=== PATIENT | male | born 1950 | race Caucasian/White ===

== ENCOUNTER 2019-05-19 05:40 | Observation (INO) | payer MEDICARE, OTHER ==
--- NOTE | 2019-05-13 13:51 | NUR ---
PATIENT AND HERE TODAY FOR PREADMISSION APPOINTMENT. PATIENT IS SCHEDULED TO HAVE A LEFT TOTAL HIP ARTHROPLASTY ON 05/19/19. HIS SIENNA WILL BE HERE TO TRANSFER HIM HOME WHEN HE IS DISCHARGED. HE HAS HAD A HIP AND KNEE REPLACEMENT IN THE PAST IT IS RECALLED BY THE PATIENT. THEY HAVE 2 STEPS INTO THE HOME AND NO STEPS INSIDE THE HOME THAT HE WILL HAVE TO NAVIGATE. THERE IS A WALK IN SHOWER WITH BUILT IN SHOWER BENCH. THEY ALSO HAVE A SHOWER CHAIR AND BARS IN THE BATHROOM. HE HAS A FRONT WHEELED WALKER THAT HE WILL BRING ON DAY OF SURGERY. THEY LIVE IN THE [place] AREA AND WOULD LIKE PHYSICAL THERAPY SET UP AT [facility] AFTER SURGERY. THEY ARE HEADING OVER TO ATTEND A PREOPERATIVE VISIT WITH PHYSICAL THERAPY WHEN THEY ARE DONE WITH THIS VISIT. THIS INFORMATION WILL BE SENT TO DR ZALDIVAR OFFICE AND CASE MANAGEMENT FOR FURTHER FOLLOW UP.
[~2019-05-19] VITALS: Ht 182.9 cm; Wt 96.2 kg
[~2019-05-19 05:40] MED LIST: ALEVE220 MG PO; ASPIR-LOW81 MG PO; FISH OIL 1,0001 EAC3 PO; LISINOPRIL-HCT1 EAC2 PO; MULTIVITAMINS1 EAC8 PO; NORVASC5 MG PO; OMEPRAZOLE20 MG PO; SILDENAFIL20 MG PO
--- NOTE | 2019-05-19 08:41 | NUR ---
PATIENT ARRIVED TO FLOOR AT 0820 WITH RONAK RN. AT BEDSIDE. PATIENT LYING AT 15 DEGREE HOB ON ADMISSION D/T LOW BP. EAR PROBE USED FOR HR AND O2 SATS. PATIENT HAS HX OF REYNAUDS SO FINGERS NOT READING WELL WITH PULSE OXIMETRY. VSS. SCDs AND TEDS ON BILAT LEGS. HR DISTANT AND DIFFICULT TO AUSCULTATE. HEART MONITOR IN PLACE. AWAITING ORDERS FROM DR PAGAN.
--- NOTE | 2019-05-19 08:54 | NUR ---
05/19/19 0854 Sarah Godoy 0741- PT ARRIVES TO PACU ALERT AND ORIENTED. PT IS CLAMMY AND REPORTS BEING "OUT OF IT". PT DENIES ANY CHEST PAIN, SOB, NAUSEA, OR OTHER SYMPTOMS. RESP EVEN AND UNLABORED. OXYGEN SAT HIGH 90'S TO 100% ON 8L VIA MASK. DR. ZALDIVAR AT THE BEDSIDE AND ORDERING LABS TO BE COMPLETED. PT PLACED ON THE 5- LEAD UPON ARRIVAL. EKG COMPLETED IN THE OR.
--- NOTE | 2019-05-19 12:03 | NUR ---
bladder scanned for 511ml. no urge to void. patient is able to move toes and has sensation in lower extremities. MD notified. order to straight cath.
--- NOTE | 2019-05-19 13:06 | NUR ---
STRAIGHT CATHETER ORDERED. PT UPDATED ON PLAN OF CARE AND REASON FOR STRIGHT CATHETER PLACEMENT. PT VERBALIEZES UNDERSTANDING AND AGREES TO PROCEEDURE. STRAIGHT CATHETER PLACED PER PROTOCOL BY DOUGIE, STUDENT RN WITH ASSITANCE FROM THIS RN. 725 ML RETRIEVED FROM BLADDER. CATHETER REMOVED. PT TOLERATED PROCEEDURE WELL. KENDELL CARE DONE. LAB ARRIVED FOR LAB DRAW. NO ADDITIONAL REQUESTS OR COMPLAINTS. AT BEDSIDE. CALL LIGHT WITHIN REACH. BED RAILS UP.
--- NOTE | 2019-05-19 13:17 | NUR ---
PTS REPORTS PTS TOXICOLOGIST IS DR YINA ANDERSON IN [facility], PHONE NUMBER [phone]. PT AND REQUEST HE BE CALLED AND UPDATED ON PT SITUATION. MD MACIAS.
--- NOTE | 2019-05-19 14:28 | NUR ---
PT ALERT, ORIENTED AND SUPPORTED BY HIS . ADVERTISING ASSOCIATE WAITING OUTSIDE RM. GAVE QUICK WELCOME, PT FROM [facility]-TRAVELLED HERE SUNDAY. GAVE BLESSING, AND WILL CHECK ON PT AGAIN IN M/S
--- NOTE | 2019-05-19 14:46 | NUR ---
PT IS IN CCU,DID NOT HAVE SURGERY. HEAR WENT INTO [facility], DR CANCELLED SURGERY AND ADMITTED PT. BOTH PT AND SIENNA VERY THANKFUL FOR CARE AND WISDOM SHONE BY DR ZALDIVAR AND STAFF. PT WOULD NOT ADMIT, BUT SOME ANXIETY PRESENT. HE REQUESTED PRAYER, TEARS BEGAN TO FLOW. HAD DISCUSSION AB0UT DRS' DECISION, AGAIN EXPRESSED AGREEMENT WITH DECISION. BOTH THANKED ME FOR COMING BY, LEFT G.POST IN .
--- NOTE | 2019-05-19 15:05 | EKG ---
[facility] [address] [place] [address] Signed Unusual P axis, possible ectopic atrial tachycardia Left axis deviation Left bundle branch block Abnormal ECG No previous ECGs available Confirmed by NAV PAGAN MD ([id number]) on 05/19/2019 3:05:02 PM Electronically Signed By: NAV PAGAN MD 05/19/19 1505 PATIENT NAME: LACIE KHAN [place] Electrocardiogram DATE OF : 52 PHYSICIAN: NAV PAGAN MD REPORT #: [id number] REPORT IS CONFIDENTIAL AND NOT TO BE RELEASED WITHOUT AUTHORIZATION
--- NOTE | 2019-05-19 17:07 | NUR ---
AMBULATED TO BATHROOM. SBA. URINATED 1275ML ORANGE URINE INTO URINAL. VSS.
--- NOTE | 2019-05-19 21:00 | NUR ---
PT AMBULATED TO BATHROOM HEART RATE INCREASED TO 122 AT THE MAX THEN WHEN BACK IN BED BACK TO THE 60'S. SCD'S INPLACE AT THIS TIME, CALL LIGHT WITHIN REACH.
--- NOTE | 2019-05-19 22:38 | NUR ---
PT HAS HAD ADRIÁN SPO2 DESAT'S INTO THE 80'S, THEREFORE MOVED SPO2 MONITOR TO THE PINKEY FINGER TO SEE IF THAT WOULD HELP. PT DOES HAVE COOL HANDS AND FINGERS. HE ALSO WAS IN THE PROCESS OF TURNING TO HIS SIDE. WITH THE CHANGE OF SPO2 MONITOR READINGS HAVE INPROVED. WITH PT ON HIS SIDE HIS HEART RATE INCREASED TO THE 110 AND IS PACED.
--- NOTE | 2019-05-20 00:55 | NUR ---
PT UP TO THE BATHROOM VOIDED AND THEN BACK TO BED. HEART RATE INCREASES TO THE 122 WITH AMBULATION
--- NOTE | 2019-05-20 04:31 | NUR ---
PT APPEARS TO BE SLEEPING AT THIS TIME. SPO2 100% ON ROOM AIR.
--- NOTE | 2019-05-20 05:44 | NUR ---
PT CONTIOUES TO SLEEP WILL COMPLETE ASSEMENT WHEN HE AWAKENS.
--- NOTE | 2019-05-20 05:52 | NUR ---
NO AM LABS, PT ASLEEP.
--- NOTE | 2019-05-20 07:30 | NUR ---
REPORT RECIEVED. PATIENT IS TALKATIVE AND IS GOOD SPIRTIS.
--- NOTE | 2019-05-20 08:00 | NUR ---
ASSESSMENT DONE. DENIES PAIN. TALKED WITH PATIENT ABOUT POC FOR DAY, PATIENT IS UNDERSTANDING.
--- NOTE | 2019-05-20 09:16 | NUR ---
TOOK BREAKFAST WELL. IS W/O C/O. IS AT BEDSIDE.
--- NOTE | 2019-05-20 09:30 | NUR ---
DR. PAGAN HERE TO SEE PATIENT. DISCHARGE ORDERS RECIEVED.
--- NOTE | 2019-05-20 09:40 | NUR ---
PT IS SOMEWHAT UPSET ABOUT DISCHARGE FEELS HE DOESN'T KNOW WHAT IT GOING ON WITH HIS PACEMAKER. REASSURED PATIENT I WOULD TALK TO DR. PAGAN AND PT HYDRAULIC CONTROLS TECHNICIAN.
--- NOTE | 2019-05-20 10:01 | NUR ---
MED REC COMPLETE
[2019-05-20] MEDS ORDERED: IRON325 M1 PO (10:02)
--- NOTE | 2019-05-20 11:00 | NUR ---
AMBULATED IN ALBRECHT, TOLERATED WELL. HR 62-126.
--- NOTE | 2019-05-20 11:40 | NUR ---
TALKED TO VIA PHONE, WILL FAX STRIPS TO PATIENT.
--- NOTE | 2019-05-20 12:00 | NUR ---
EKG AND STRIPS FAXED TO DR. ANDERSON OFFICE FOR REVIEW. PATIENT IS SITTING UP IN CHAIR READY TO EAT.
--- NOTE | 2019-05-20 13:25 | NUR ---
discharge instructions given with patient understanding, patient then discharged via w/c.
--- NOTE | 2019-05-20 13:52 | NUR ---
PT AND JUST GETTING READY TO EAT LUNCH. PT SAID HE IS TO BE DC'D LATER TODAY. FEELS CONFIDENT THAT THIS WAS THE RIGHT DECISION AND SAID HE FEELS EVERYONE LEARNED SOMETHING AND THAT SEEMED TO PLEASE HIM. PT REQUESTED PRAYER AND INCLUDED THANKS FOR DR MAGAÑA, HELP GETTING ANOTHER SURGERY DATE AND FOR SAFE TRAVEL HOME. EXTENDED A BLESSING,
== END 2019-05-20 13:25 | disposition home or self-care (01) ==
LOC: DS 05:40 → OPS 08:00 → EDSTATUS 08:00 → DS 08:00 → CCU 08:16
PROVIDERS: ADMIT Internal Medicine
PROC: 0SRB0JZ Replacement of Left Hip Joint with Synthetic Substitute, Open Approach (ICD-10-PCS; principal; 2019-05-19)
DX: M16.12 Unilateral primary osteoarthritis, left hip (principal); I95.9 Hypotension, unspecified; E78.00 Pure hypercholesterolemia, unspecified; I10 Essential (primary) hypertension; Z88.0 Allergy status to penicillin; Z88.8 Allergy status to other drugs, medicaments and biological substances; Z79.899 Other long term (current) drug therapy; Z79.82 Long term (current) use of aspirin; Z53.09 Procedure and treatment not carried out because of other contraindication
CPT/HCPCS: 01230; 36415; 51701; 51798; 80053; 82550; 82553; 83735; 83874; 84484; 85025; 93005; 93010; G0378; J0690; J1100; J2250; J2704; J2795; J3010; J7121

== ENCOUNTER 2019-08-11 09:50 | Day surgery (SDC) | payer MEDICARE, OTHER ==
--- NOTE | 2019-08-05 17:02 | NUR ---
PATIENT HERE FOR PREADMISSION APPOINTMENT. HE IS SCHEDULED TO HAVE A LEFT TOTAL HIP ARTHROPLASTY ON 08/11/2019. IT IS RECALLED HE WAS HERE IN MAY AND DID NOT HAVE SURGERY DUE TO A HEART ISSUE. HE STATES HE HAS BEEN TO THE REPORT MANAGER AND IS DOING VERY WELL. HIS WILL BE HERE TO TRANSPORT HIM HOME AND TO APPOINTMENTS NEEDED. THEY HAVE 1 OR 2 STEPS INTO THE HOME AND NO STEPS ON THE MAIN LEVEL THAT HE WILL BE USING. THERE IS A WALK IN SHOWER AND HE HAS A SHOWER BENCH. HE WILL BRING HIS WALKER WITH HIM AND WOULD LIKE PHYSICAL THERAPY SET UP WITH [facility] SINCE THEY LIVE IN THE [place] AREA. THIS INFORMATION WILL BE SENT TO DR ZALDIVAR OFFICE AND CASE MANAGEMENT FOR FURTHER FOLLOW UP.
[~2019-08-11] VITALS: Ht 182.9 cm; Wt 98.4 kg
--- NOTE | ~2019-08-11 | EKG ---
[facility] [address] [place], [place] [address] Draft EK completed, results pending confirmation PATIENT NAME: CHANAALISHALACIE Electrocardiogram DATE OF : 52 PHYSICIAN: PRELIMINARY REPORT #: [id number] REPORT IS CONFIDENTIAL AND NOT TO BE RELEASED WITHOUT AUTHORIZATION
[~2019-08-11 09:50] MED LIST changes: +IRON325 M1 PO
--- NOTE | 2019-08-11 11:30 | NUR ---
PATIENT RESTING BACK WATCHING TELEVISION. UPDATED ON WAIT TIME. NO OTHER NEEDS AT THIS TIME.
--- NOTE | 2019-08-11 12:30 | NUR ---
PATIENT BLOCK DONE BY MARCY BAPTISTE. TOLERATED WELL. RAILS UP, CALL LIGHT WITHIN REACH. VSS. NO OTHER NEEDS AT THIS TIME. PATIENT AWARE OF WAIT TIME.
--- NOTE | 2019-08-11 13:50 | NUR ---
TXA STARTED DRIPPING SLOWLY. PATIENT AWAKE AND CONVERSING. NO OTHER NEEDS AT THIS TIME.
--- NOTE | 2019-08-11 14:02 | NUR ---
PATIENT LEFT TO OR. NEW BAG OF LR HANGING PER CLAUDIA GRAIN SCOOPER REQUEST. PATIENT APPEARS CALM. VSS.
--- NOTE | 2019-08-11 16:39 | NUR ---
Received referral for placement. Attempted to call , but no answer. Will call tomorrow or speak with patient and check if they are seeking placement in [place] or [place].
--- NOTE | 2019-08-11 17:50 | NUR ---
PT ARRIVED TO FLOOR VIA STRETCHER. FOOT PUMPS. TEDHOSE, CRYOCUFF IN PLACE. PT IS ALERT AND ORIENTED. PICCO DRESSING BLINKING GREEN. WATER AND CRACKERS GIVEN. DINNER ORDERED. CALL LIGHT IN REACH./
--- NOTE | 2019-08-11 17:57 | EKG ---
[facility] [address] [place] [address] Signed Atrial-sensed ventricular-paced rhythm Abnormal ECG When compared with ECG of 11-AUG-2019 17:26, (Unconfirmed) Vent. rate has decreased BY 11 BPM Confirmed by ABDI MCKEON DO ([id number]) on 08/11/2019 5:57:13 PM Electronically Signed By: ABDI MCKEON DO 08/11/19 1757 PATIENT NAME: BILLLACIE Electrocardiogram DATE OF : 52 PHYSICIAN: ABDI MCKEON DO REPORT #: [id number] REPORT IS CONFIDENTIAL AND NOT TO BE RELEASED WITHOUT AUTHORIZATION
--- NOTE | 2019-08-11 18:03 | NUR ---
08/11/19 1803 Miladys Albrecht 1711 PT ARRIVED IN PACU AWAKE WITH NO C/O'S. 1715 ANESTHESIA REQUESTING EKG FOR HEART RATE CHANGES IN OR. 1720 RT AT BEDSIDE. EKG DONE. 1730 CRYO CUFF PLACED ON L HIP. ANESTHESIA REVIEWED EKG WITH NO NEW ORDERS. PT WITH NO C/O'S. 1750 TO MED SURG. REPORT GIVEN TO RN.
--- NOTE | 2019-08-11 18:50 | NUR ---
VITALS TAKEN AND STABLE. FOCUS ASSESSMENT COMPLETED. NO CHANGES.
--- NOTE | 2019-08-11 19:30 | NUR ---
REPORT RECEIVED FROM DAY SHIFT RN. PT LYING IN BED, ALERT AND ORIENTED. LEFT HIP DRESSING CDI. CLAUDIA INTACT, LIGHT FLASHING GREEN. SCD'S/TEDS/HP/CRYO IN PLACE. PT DENIES PAIN OR NAUSEA. FRESH WATER GIVEN. POST-OP VS COMPLETE. NO FURTHER NEEDS AT THIS TIME. WHITE BOARD UPDATED. CALL LIGTH IN REACH.
--- NOTE | 2019-08-11 20:15 | NUR ---
SPOKE WITH PT REGARDING PLACEMENT. HE STATES THAT HE DOES NOT WANT THAT AND JUST WANTS TO DO OUTPT PHYSICAL THERAPY IN [place]. STATES THAT HIS HOUSE IS HANDICAPP ACCESSIBLE AND HAS A AT HOME TO HELP.
--- NOTE | 2019-08-11 22:30 | NUR ---
EVENING ASSESSMENT COMPLETE. SCHEDULED MEDS ADMINISTERED PER EMAR. PT DENIES PAIN OR NAUSEA. CLAUDIA DRESSING ON LEFT HIP CDI, LIGHT FLASHING GREEN. SCD'S/JUSTICE'S/HP IN PLACE. FRESH ICE TO CRYO. CMS INTACT. PT DUE TO VOID. DENIES PAIN OR NAUSEA. FRESH WATER GIVEN. IV ABX INFUSING.
--- NOTE | 2019-08-11 23:00 | NUR ---
PT UP TO SIDE OF BED WITH 2PA TO ATTEMPT TO VOID. UNABLE TO VOID. BLADDER SCAN >900 ML. MARTE PLACED PER ORDER. PT NATALIA WELL. IMMEDIATE RETURN OF 1000 ML ORANGE TINGED URINE.
--- NOTE | 2019-08-11 23:33 | NUR ---
EVENING ASSESSMENT COMPLETE. SCHEDULED MEDS ADMINISTERED PER EMAR. PT DENIES PAIN OR NAUSEA. CLAUDIA DRESSING ON LEFT HIP INTACT, LIGHT FLASHING GREEN. SCD'S/JUSTICE'S/HP IN PLACE. FRESH ICE TO CRYO. CMS INTACT. PT DUE TO VOID. DENIES PAIN OR NAUSEA. FRESH WATER GIVEN. IV ABX INFUSING.
--- NOTE | 2019-08-12 01:30 | NUR ---
VS COMPLETE. SCHEDULED MEDS ADMINISTERED. PT DENIES PAIN. SCD'S/JUSTICE'S/HP/CRYO IN PLACE. CLAUDIA INTACT, LIGHT FLASHING GREEN. CPOX IN PLACE. HR 60. SPO2 96% ON RA.
--- NOTE | 2019-08-12 03:45 | NUR ---
PT AWAKE. CPOX ALARMING, HR 114 FOR A FEW SECONDS AND THEN RETURNS TO 60'S. PT ASYMPTOMATIC, DENIES CP OR SOB. SPO2 97% ON RA. PT REPORTS "A LITTLE" PAIN IN LEFT HIP INCISION. DENIES NAUSEA.
--- NOTE | 2019-08-12 05:07 | NUR ---
PT RESTING IN BED WITH EYES CLOSED, RR EVEN AND UNLABORED. HR 112. SPO2 92% ON RA.
--- NOTE | 2019-08-12 06:05 | NUR ---
S/P LTH. PT SLEPT ON AND OFF. ALERT AND ORIENTED, USES CALL LIGHT. NATALIA REG DIET. RA. MARTE PLACED LAST NOC FOR RETENTION. DC'D THIS AM. SBA WITH FWW. LEFT HIP CLAUDIA DRESSING INTACT WITH SCANT AMOUNT OF DRAINAGE, LIGHT FLASHING GREEN. SCD'S/JUSTICE'S/HP/CRYO. PT WITH PACEMAKER, HR BECAME IRREGULAR THIS SHIFT. PT ASYMPTOMATIC, NO CP OR SOB. PAIN CONTROLLED WITH SCHEDULED MEDS. NO NAUSEA.
--- NOTE | 2019-08-12 06:52 | NUR ---
PLACED CALL TO UPDATE DR. ZALDIVAR ON PT HR AND MARTE PLACEMENT.
--- NOTE | 2019-08-12 07:51 | NUR ---
REPORT RECIEVED. PT SITTING UP IN BED ALERT. CPOX IN PLACE. TEDHOSE, SCD'S CRYOCUFF IN PLACE. PICCO BLINKING GREEN. DENEIS PAIN AT THIS TIME. CALL LIGHT IN REACH.
--- NOTE | 2019-08-12 08:01 | OR ---
[facility] [address] [facility] [place], [place] [address] Signed DATE OF OPERATION: 08/11/2019 SURGEON: Lenard Ashford MD PREOPERATIVE DIAGNOSIS: Severe degenerative joint disease, left hip. POSTOPERATIVE DIAGNOSIS: Severe degenerative joint disease, left hip. PROCEDURE PERFORMED: Left total hip arthroplasty with Jarrett. CANDY FORMING MACHINE OPERATOR: Kirstie Mendez PA-C. ANESTHESIA: Spinal. BLOOD LOSS: 250 mL. IMPLANTS: Keanu PSL cup size 60, Accolade II stem, size 9 and a -2.5 ceramic head. BRIEF HISTORY: Keo is a 68-year-old gentleman with bilateral hip pain and undergone prior right total hip with good results. He wished to proceed with a left. Risks, benefits, and alternatives were discussed at length. He understood and wished to proceed. DESCRIPTION OF PROCEDURE: Once consent was obtained, he was taken to the operating room. After adequate anesthesia, he was placed on operating room table. The left hip was placed on a bump. Both legs were prepped and draped up to the ribcage. The computer ray was then placed on the right iliac crest, three fingerbreadths behind the ASIS. Separate stab incisions were made. All three pins were put in using the guide and the guide was tightened and the ray was placed such that was seen by the computer. Attention was then turned to the left side. The standard anterior approach was taken through a longitudinal incision about 9 cm long, this was eventually increased to 12 cm. This carried through skin and subcutaneous tissue. The fascia of the TFL was then identified and incised Electronically Signed By: LENARD ASHFORD MD 08/12/19 0801 PATIENT NAME: KEO KHAN OPERATIVE REPORT DATE OF : 52 REPORT #: [id number] PHYSICIAN: LENARD ASHFORD MD PCP: MARCY SANTOS MD REPORT IS CONFIDENTIAL AND NOT TO BE RELEASED WITHOUT AUTHORIZATION [facility] [address] [place], [place] [address] Signed longitudinally. The TFL was then taken off the underside of the fascia and mobilized laterally. The underlying rectus fascia was then identified. There were three vessels and this and those were cauterized using the Aquamantys and transected. The soft tissue on the anterior capsule was extremely adherent and quite thickened. This was elevated off to allow the retractors to be placed medially and laterally around the femoral neck. Once we had accomplished this, the trochanter was cleared of soft tissue anteriorly and checkpoint was placed there. The two checkpoints were then registered with the computer to establish the current leg length. The anterior capsulotomy was then performed and the acetabular rim was cleared of soft tissue. We then released the capsule inferior inferiorly down to the level of the lesser trochanter. This was palpable. External rotation allowed us to get around were needed to be. The superior capsule was then released up the inside of the greater trochanter trying to preserve the gluteus minimus. Once this was accomplished, the neck cut, which was aligned out on the computer was then selected and the neck cut was made with the sagittal saw and a napkin ring was made and the center portion was removed. The femoral head was then removed actually fairly easily. The periacetabular soft tissue was removed all the way around including the pulvinar. The acetabulum was then registered with the computer using multiple registration points. Once this was satisfactorily done, the Jarrett reamer was brought in and 44 degrees of abduction and 20 degrees of anteversion. The reaming was proceeded, first with a 55, followed by 60, followed by 62 to widen the starting point. The reamer was taken to the depth as indicated on the computer. The implant was then selected, placed on the impactors in the robot and was placed in the wound. The robot was then activated and the acetabulum was impacted until it was well-seated. The public health veterinarian was then removed. The acetabular cup was quite stable and the liner was then placed and impacted until it was well-seated. Attention was then turned to the proximal femur. The releases were performed in the superior and medial portions of the trochanter. We were able then to mobilize the femur by externally rotating, abducting and flexing the bed. We were then able to broach with care taken to lateralize the broaches up to a 9. The 9 was quite well fitting, was left in position. The high offset neck and -2.5 head were then placed and the hip was reduced. The leg lengths were found to be equal. We checked the checkpoints with the computer, there was 2 mm lengthening compared to the opposite side. Offset was the same. We elected to accept this. The hip was then dislocated. The trial was removed. The final stem was positioned and impacted to the same level as the broach. The final head was then impacted. The hip was reduced. Range of motion showed 120 degrees of flexion with 40 of internal and external rotation. Leg lengths were equal. The wound was copiously irrigated with normal saline, followed by iodine, followed by more normal saline. The fascia was then closed using #1 Stratafix, subcutaneous tissue with #1 Stratafix, and the skin with ZipLine. The wound was dressed with a CLAUDIA wound VAC dressing. He was awakened and taken to the recovery room in satisfactory condition. All sponge, needle, and instrument counts were correct. Electronically Signed By: LENARD ASHFORD MD 08/12/19 0801 PATIENT NAME: KEO KHAN OPERATIVE REPORT DATE OF : 52 REPORT #: [id number] PHYSICIAN: LENARD ASHFORD MD PCP: MARCY SANTOS MD REPORT IS CONFIDENTIAL AND NOT TO BE RELEASED WITHOUT AUTHORIZATION [address] [place], [place] [address] Signed Lenard Ashford MD BA/MODL /[id number] Copies: ~ Electronically Signed By: LENARD ASHFORD MD 08/12/19 0801 PATIENT NAME: KEO KHAN OPERATIVE REPORT DATE OF : 52 REPORT #: [id number] PHYSICIAN: LENARD ASHFORD MD PCP: MARCY SANTOS MD REPORT IS CONFIDENTIAL AND NOT TO BE RELEASED WITHOUT AUTHORIZATION
--- NOTE | 2019-08-12 08:07 | NUR ---
PATIENT RESTING IN BED. BEDBATH DONE. PATIENT USING AN CLEAN GOWN. SETS UP TABLE FOR BREAKFAST. CALL LIGHT WITHIN REACH. NO OTHER NEEDS AT THIS TIME
--- NOTE | 2019-08-12 09:30 | NUR ---
SBA WITH FWW TO BATHROOM FOR BM AND VOID. AMBULOATED WELL WITH NO ASSISTANCE AND NO PAIN. LUH NTO SIT IN CHAIR AFTER.
--- NOTE | 2019-08-12 09:38 | NUR ---
PHYSICAL THERAPY IN TO WORK WITH PT.
--- NOTE | 2019-08-12 09:59 | NUR ---
PATIENT RESTING IN BED. VITAL SIGNS AND I&O DONE. CALL LIGHT WITHIN REACH. NO OTHER NEEDS AT THIS TIME
--- NOTE | 2019-08-12 12:00 | NUR ---
Spoke with Adelfo. States he feels good and is doing well. He lives near [place] with his . Has a walker, cane, and wc from past fx leg. Does not use. Will use his walker as needed. He has been up and walking and walked up and downs with PT. States he was somewhat dizzy, but it was his first time out of bed. On tele. Denies needs to go home and plans on dc tomorrow, if Dr. Ashford agreeable.
--- NOTE | 2019-08-12 12:36 | NUR ---
PT ASSISTED TO BATHROOM. VOIDED 500ML. NO BM. BACK TO BED. CRYOCUFF, TEDHOSE, SCD'S IN PLACE. DENIES PAIN. CALL LIGHT IN REACH.
--- NOTE | 2019-08-12 13:20 | NUR ---
PATIENT SITTING UP IN BED. VITAL SIGNS AND I&O DONE. CALL LIGHT WITHIN REACH. NO OTHER NEEDS AT THIS TIME
--- NOTE | 2019-08-12 14:41 | NUR ---
PATIENT AMBULATING IN THE HALLWAY WITH PHYSICAL THERAPIST
--- NOTE | 2019-08-12 15:43 | NUR ---
PT WORKED WELL WITH PHYSICLA THERAPY. REPORTS 3/10 PAIN AFTER THERAPY. VOIDED 1000 ML. CRYOCUFF REFRESHED, TEDHOSE IN PLACE. BREAK FROM SCD'S. PT INSTRUCTIONED TO PUMP FEET. CRESSINGS WITH SMALL AMOUNT OF SHADOWING BUT WNL. CALL LIGHT IN REACH. DENIES NEEDS.
--- NOTE | 2019-08-12 17:14 | NUR ---
PATIENT RESTING IN BED. VITAL SIGNS AND I&O DONE. CALL LIGHT WITHIN REACH. ICE WATER GIVEN. NO OTHER NEEDS AT THIS TIME
--- NOTE | 2019-08-12 17:41 | EKG ---
[facility] [address] [facility] [place] [address] Signed AV dual-paced rhythm Abnormal ECG When compared with ECG of 11-AUG-2019 17:31, Vent. rate has decreased BY 11 BPM Confirmed by ABDI MCKEON DO ([id number]) on 08/12/2019 5:41:13 PM Electronically Signed By: ABDI MCKEON DO 08/12/19 1741 PATIENT NAME: CHANAALISHALACIE Electrocardiogram DATE OF : 52 PHYSICIAN: ABDI MCKEON DO REPORT #: [id number] REPORT IS CONFIDENTIAL AND NOT TO BE RELEASED WITHOUT AUTHORIZATION
--- NOTE | 2019-08-12 18:47 | NUR ---
PT ASSSITED TO BATHROOM. HAS URGE TO HAVE BM BUT IS UNABLE. INCREASED SENZ DOSE AND MYRALAX TO BID. PT VOIDED 750ML. STILL DENIES PAIN. AMBULATING WELL. BACK TO BED WITH EMILY LONG, SCD'S. PICCO BLINKING GREEN. DRESSINGS C/D/I.
--- NOTE | 2019-08-12 18:49 | NUR ---
PT HAD GOOD DAY. NO PAIN THIS SHIFT. VOIDING WELL, DUE FOR BOWEL MOVEMENT. INCREASED SENNO AND MYRALAX DOSES. TELE 4 IN [place] AND RHYTHM IS PACED BETWEEN 60-90. CRYOCUFF TO LEFT HIP. TEDOHOSE AND SCD'S IN PLACE WHILE IN BED. AMBUATING WELL AND WORKING WELL WITH PHYSICAL THERAPY. NO NEED FOR OXYCODONE.
--- NOTE | 2019-08-12 19:25 | NUR ---
IN ROOM FOR REPORT, PT IS AWAKE IN BED AND DENIES NEEDS AT THIS TIME. CALL LIGHT IS CLOSE.
--- NOTE | 2019-08-12 20:40 | NUR ---
IN ROOM TO ASSESS PT AND ADMINISTER MEDICATIONS. PAIN IS 3/10 AT THIS TIME AND TOLERABLE CRYO CUFF IN PLACE AND PT IS TAKING A BREAK FROM SCDS BUT AES ARE IN PLACE. PT PLANS ON WALKING TONIGHT. HE DENIES NEEDS AT THIS TIME. CALL LIGHT IS CLOSE.
--- NOTE | 2019-08-12 21:02 | NUR ---
ACCOMPANIED PATIENT WALKED AROUND NURSE STATION X1. PATIENT IS BACK IN BED. CALL LIGHT IN REACH.
--- NOTE | 2019-08-12 22:09 | NUR ---
IN ROOM TO ADMINISTER TYLENOL FOR 4/10 PAIN. PT DENIES FURTHER NEEDS, CALL LIGHT IS CLOSE.
--- NOTE | 2019-08-12 23:43 | NUR ---
PT IS RESTING WITH EYES CLOSED, RR IS EVEN AND NONLABORED. CALL LIGHT IS CLOSE.
--- NOTE | 2019-08-13 01:29 | NUR ---
PT IS RESTING WITH EYES CLOSED, RR IS EVEN AND NONLABORED. CALL LIGHT IS CLOSE.
--- NOTE | 2019-08-13 03:41 | NUR ---
PT IS RESTING WITH EYES CLOSED, RR IS EVEN AND NONLABORED. CALL LIGHT IS CLOSE.
--- NOTE | 2019-08-13 04:10 | NUR ---
PT WAS HELPED TO RESTROOM BY TRA WALTERS AND PT IS NOW BACK IN BED. HE REPORTS PAIN 2/10 AND DENIES NEED FOR MEDICATION. SEE ASSESSMENT FOR MORE DETAILS. PT DENIES FURTHER NEEDS AT THIS TIME. CALL LIGHT IS CLOSE.
--- NOTE | 2019-08-13 07:46 | NUR ---
REPORT RECEIVED FROM SELENA HAGEN. PT SITTING UP IN BED TALKING ON PHONE TO . DENIES CONCERNS ATT. CRYO IN PLACE. CALL ESTEE IN REACH.
[2019-08-13] MEDS ORDERED: ASPIRIN EC325 MG PO (08:52)
[2019-08-13] MEDS ORDERED: GABAPENTIN600 MG PO (08:53)
[2019-08-13] MEDS ORDERED: CELECOXIB200 MG PO (08:53)
[2019-08-13] MEDS ORDERED: OXYCODONE HCL5 MG PO (08:53)
[2019-08-13] MEDS ORDERED: DOK PLUS TABLE1 EACH PO (08:53)
--- NOTE | 2019-08-13 10:15 | NUR ---
IN TO INTEROGATE PTS PACEMAKER WITH [facility]. ON PHONE WITH TECH, SHE REPORTS THAT TRANSMISSION WAS RECIEVED.
--- NOTE | 2019-08-13 11:24 | NUR ---
SPOKE WITH PT REGARDING SHOWER AND GOT ALL SUPPLIES READY. STUDENT WILL STAY IN ROOM WITH PT WHILE HE SHOWERS IF HE NEEDS ANYTHING SHE CAN ALERT US. REMOVED IV WNL. REMOVED FROM TELE TEMPORARILY.
[2019-08-13] MEDS ORDERED: VITAMIN C1000 MG PO (12:44)
--- NOTE | 2019-08-13 13:15 | NUR ---
Spoke with Keo. He is dressed and waiting to go home. He plans on OP therapy with [facility]. H&P, progress notes, therapy notes, face sheet faxed to OP in [place]. Note sent as pt does not want to start therapy until middle of next week.
== END 2019-08-13 13:40 | disposition home or self-care (01) ==
LOC: DS 09:50 → MS 09:50 → DS 10:45 → MS 18:09 → DS 08-13 13:40
PROVIDERS: Specialist
PROC: 8E0YXBZ Computer Assisted Procedure of Lower Extremity (ICD-10-PCS; 2019-08-11)
PROC: 0SRB03Z Replacement of Left Hip Joint with Ceramic Synthetic Substitute, Open Approach (ICD-10-PCS; principal; 2019-08-11 12:15)
DX: M16.12 Unilateral primary osteoarthritis, left hip (principal); I10 Essential (primary) hypertension; K21.9 Gastro-esophageal reflux disease without esophagitis; Z79.899 Other long term (current) drug therapy; Z79.82 Long term (current) use of aspirin; Z88.0 Allergy status to penicillin; Z96.641 Presence of right artificial hip joint; Z96.651 Presence of right artificial knee joint; Z88.8 Allergy status to other drugs, medicaments and biological substances
CPT/HCPCS: 01214; 64447; 73501; 76942; 93005; 93010; 97110; 97116; 97161; C1776; J0690; J1100; J1885; J2001; J2250; J2370; J2405; J2704; J2795; J7121; J8540

== ENCOUNTER 2022-07-03 07:00 | Day surgery (SDC) | payer MEDICARE, OTHER ==
[~2022-07-03] VITALS: Ht 182.9 cm; Wt 98.6 kg
[~2022-07-03 07:00] MED LIST changes: +ASPIRIN EC325 MG PO; +CELECOXIB200 MG PO; +DOK PLUS TABLE1 EACH PO; +GABAPENTIN600 MG PO; +METOPROLOL TART75 MG PO; +OXYCODONE HCL5 MG PO; +TOPROL XL50 MG PO; +TYLENOL325 MG PO; +VITAMIN C1000 MG PO
[2022-07-03 07:19] VITALS: BP 152/89
--- NOTE | 2022-07-03 09:28 | NUR ---
ekg done shown to physician
[2022-07-03] MEDS ORDERED: GABAPENTIN300 MG PO (11:37)
[2022-07-03] MEDS ORDERED: DICLOFENAC SODI75 MG PO (11:37)
[2022-07-03] MEDS ORDERED: OXYCODONE HCL5 MG PO (11:37)
[2022-07-03] MEDS ORDERED: SENNA LAX8.6 MG PO (11:37)
[2022-07-03] MEDS ORDERED: XARELTO10 MG PO (11:37)
[2022-07-03 12:38] VITALS: BP 127/79
--- NOTE | 2022-07-03 12:39 | NUR ---
07/03/22 1239 Miladys Albrecht 1141 PT ARRIVED IN PACU NON RESPONSIVE TO NOXIOUS STIMULI WITH OPA IN PLACE. CHIN LIFT HELD BY RN. 1148 PT REACTIVE. OPA REMOVED. ON QUE IN PLACE FROM SURGERY AND SET AT 4ML/HR. 1155 CRYO CUFF PLACED ON L KNEE. PT WITH NO C/O'S. 1207 TORADOL 15MG GIVEN IVP PER DR ORDERS. 1225 TO DS. REPORT GIVEN TO RN.
--- NOTE | 2022-07-03 12:44 | NUR ---
1225: PT RETURNS TO UNIT FROM PACU. AWAKE AND ALERT ON ARRIVAL. VSS, RESP EVEN AND UNLABORED. PT DENIES PAIN AND NAUSEA AT THIS TIME. DENIES DESIRE FOR CRACKERS AND WATER. SPINAL LEVEL L1, DENIES PAIN. DRESSING C/D/I, CMS WNL. SECOND DOSE OF TXA INFUSING ORDERED. CRYO CUFF, FOOTPUMPS AND COMPRESSION SOCKS IN PLACE. POC DISCUSSED AND PT AGREEABLE, NO NEEDS VOICED. CALL LIGHT WITHIN REACH. AT THE BEDSIDE.
[2022-07-03 13:21] VITALS: BP 158/99
--- NOTE | 2022-07-03 13:26 | NUR ---
[id number]: PT SPOUSE COMES TO NURSES STATION TO STATE THAT PT IS HAVING PAIN ON POSTERIOR PORTION OF LEFT KNEE. CRYOCUFF ADJUSTED FROM ANTERIOR TO POSTERIOR KNEE. PT ICED WATER REFILLED AND PT PROVIDED CRACKERS AND JELLO IN ANTICIPATION OF PAIN RX. LUNCH ORDERED FOR PT AT THIS TIME. CALL LIGHT WITHIN REACH.
--- NOTE | 2022-07-03 13:52 | NUR ---
LE 1321-PATIENT SITTING UP EATING LUNCH. RESP EVEN AND UNLABORED. RATES PAIN 8/10. PATIENT IS RUBBING THE TOP OF HIS LEFT KNEE. DRESSING IS CLEAN, DRY, AND INTACT. ON-Q PUMP SET AT 4. CRYO CUFF IN PLACE ON THE BACK SIDE OF KNEE. AT BEDSIDE. LE 1326-PHONE CALL TO DR. ZALDIVAR REGARDING PATIENTS PAIN. VO FOR OFIRMEV AND TURN ON-Q PUMP UP TO 8 THEN MOVE BACK TO 6 LATER. PATIENT TO GO HOME WITH ON-Q SET AT 6. LE 1336-MEDICATION GIVEN PER EMAR. ICE PACK PROVIDED TO PUT ON TOP OF KNEE IF NEEDED.
--- NOTE | 2022-07-03 14:00 | NUR ---
PATIENT STATES PAIN IS A 7/10. STATES HE WOULD LIKE TO WAIT BEFORE TAKING A SECOND PAIN PILL. ICE PACK ON TOP OF KNEE AND CRYO CUFF PLACED ON THE BACK OF THE KNEE. PATIENT IS RUBBING THE HIS LEFT KNEE AND THIGH.
[2022-07-03 14:28] VITALS: BP 139/84
--- NOTE | 2022-07-03 14:33 | NUR ---
1430-PATIENT SITTING UP IN BED. RESP EVEN AND UNLABORED. RATES PAIN 6/10. DRESSING IS CLEAN, DRY, AND INTACE. ON-Q PUMP SET AT 8. CRYO CUFF AND ICE PACK IN PLACE. PATIENT IS DRINKING A DIET COKE. AT BEDSIDE. CALL LIGHT WITHIN REACH.
[2022-07-03 15:36] VITALS: BP 127/86
--- NOTE | 2022-07-03 16:14 | NUR ---
LE 1510-PT IN WITH PATIENT. LE 1530-PATIENT BACK FROM PT. PATIENT AMBULATES TO BATHROOM WITH WALKER. PATIENT VOIDS 100ML.
--- NOTE | 2022-07-03 16:15 | NUR ---
LE 1535-PATIENT IS SITTING ON THE SIDE OF THE BED. RESP EVEN AND UNLABORED. RATES PAIN 1/10. DENIES NASUEA. DRESSING IS CLEAN, DRY, AND INTACT. ON-Q PUMP TURNED DOWN TO 6. AT BEDSIDE. LE 1550-PATIENT STATES SOME NASUEA AFTER RECEIVING ANCEF. PATIENT LAYING DOWN IN BED. LE 1600-PATIENT FEELING BETTER.
--- NOTE | 2022-07-03 16:19 | NUR ---
LE 1600-PROVIDED PATIENT AND WITH DISCHARGE INSTRUCTIONS. ALL QUESTIONS ANSWERED. LE 1605-PATIENT AMBULATES TO WHEELCHAIR. GAIT STEADY AND TOLERATED WELL. PROVIDED RIDE TO FRONT OF THE HOSPITAL WHERE WAS WAITING WITH THE TRUCK.
--- NOTE | 2022-07-04 07:20 | EKG ---
[facility] [address] [place] [address] Signed AV dual-paced rhythm Abnormal ECG When compared with ECG of 12-AUG-2019 09:29, Vent. rate has decreased BY 5 BPM Confirmed by NAV PAGAN MD ([id number]) on 07/04/2022 7:19:49 AM Electronically Signed By: NAV PAGAN MD 07/04/22 0720 PATIENT NAME: LACIE KHAN Electrocardiogram DATE OF : 52 PHYSICIAN: NAV PAGAN MD REPORT #: [id number] REPORT IS CONFIDENTIAL AND NOT TO BE RELEASED WITHOUT AUTHORIZATION
--- NOTE | 2022-07-05 09:01 | OR ---
[facility] [address] [place], [place] [address] Signed DATE OF OPERATION: 07/03/2022 SURGEON: Lenard Ashford MD PREOPERATIVE DIAGNOSIS: DJD, left knee. POSTOPERATIVE DIAGNOSIS: DJD, left knee. PROCEDURE PERFORMED: Left total knee arthroplasty with Jarrett. FIBER PICKER: Kirstie Mendez PA-C. Kirstie was present and critical for all portions of the procedure. ANESTHESIA: Spinal. BLOOD LOSS: 175 mL. TOURNIQUET TIME: Zero. IMPLANTS: Edwards Triathlon size 7 femur, 6 tibia, 10 mm polyethylene and a 35 mm patella. BRIEF HISTORY: Tobi is a 71-year-old gentleman with progressive worsening of osteoarthritis in the left knee. He had undergone prior right total knee with good results as well as hip replacement. Risks, benefits, and alternatives were discussed and he elected to proceed. DESCRIPTION OF PROCEDURE: Once consent was obtained, he was taken to the operating room. After adequate anesthesia, he was placed on the operating room table. All downside pressure points were well padded and a hip bump was placed. The leg was prepped and draped in a standard sterile fashion. The knee was approached through a standard anterior midline incision, Electronically Signed By: LENARD ASHFORD MD 07/05/22 0901 PATIENT NAME: LACIE KHAN OPERATIVE REPORT DATE OF : 52 REPORT #: [id number] PHYSICIAN: LENARD ASHFORD MD PCP: MARCOS CUTLER MD REPORT IS CONFIDENTIAL AND NOT TO BE RELEASED WITHOUT AUTHORIZATION [facility] [address] [place], [place] [address] Signed carried through the skin and subcutaneous tissue. The arthrotomy was performed in a midvastus position. The bleeders were cauterized as we went. The MCL was elevated with a sleeve around the posteromedial corner. The infrapatellar fat pad was excised. It was fairly fibrotic. The anterior horns of the menisci were transected and the ACL was transected. The PCL was found to be intact. The navigation guide was then placed in medial femoral condyle and in the proximal tibia. The leg and hip joint were then registered with the computer. The fine anatomic points of the knee were then registered and the ligamentous balance was checked and a minor 1 degree of varus was added to the tibia. The robot was then brought in. Four straight cuts were made with care taken to protect the patellar tendon and MCL. The 2 angle cuts were made similarly. The bony remnants were removed as were any osteophytes. The trials were positioned and the knee was taken through range of motion. We did remove osteophytes off the posterior femur prior to this. The 10 polyethylene showed good ligamentous stability and went from 0 to 130 degrees. The patella was cut sized and drilled for a 35 mm patella. His bone was quite hard throughout. The distal femoral drill holes were finished and the proximal tibia was finished using the keel punch and drill holes. The tibia was impacted in position 1st until it was flushed and tight against the bone cut. The polyethylene was snapped into position and the femur was impacted. The knee was then extended and nicely loaded and the patella was clamped until it was well seated and flushed with the cut. The knee was then irrigated with a bottle of Surgiphor and followed by normal saline. Periarticular soft tissues were injected with 100 mL of ropivacaine and Toradol mixture. The On-Q pain pump was percutaneously placed into the adductor canal from the suprapatellar pouch. The arthrotomy was then closed using a combination of #2 FiberWire and #2 Stratafix, the subcutaneous tissue with 0 Stratafix, and the skin with 3-0 Stratafix. LiquiBand was applied. The wound was dressed with Aquacel, ABDs and Raulito wrap. He tolerated the procedure well. All sponge, needle, and instrument counts were correct. Lenard Ashford MD /MODL /[id number] Electronically Signed By: LENARD ASHFORD MD 07/05/22 0901 PATIENT NAME: LACIE KHAN OPERATIVE REPORT DATE OF : 52 REPORT #: [id number] PHYSICIAN: LENARD ASHFORD MD PCP: MARCOS CUTLER MD REPORT IS CONFIDENTIAL AND NOT TO BE RELEASED WITHOUT AUTHORIZATION [facility] [address] [place], [place] [address] Signed Copies: ~ Electronically Signed By: LENARD ASHFORD MD 07/05/22 0901 PATIENT NAME: BILLLACIE L OPERATIVE REPORT DATE OF : 52 REPORT #: [id number] PHYSICIAN: LENARD ASHFORD MD PCP: MARCOS CUTLER MD REPORT IS CONFIDENTIAL AND NOT TO BE RELEASED WITHOUT AUTHORIZATION
== END 2022-07-03 16:05 | disposition home or self-care (01) ==
LOC: DS 07:00
PROVIDERS: ATTEND Specialist
PROC: 0SRD0JZ Replacement of Left Knee Joint with Synthetic Substitute, Open Approach (ICD-10-PCS; principal; 2022-07-03 10:00)
DX: M17.12 Unilateral primary osteoarthritis, left knee (principal); M79.4 Hypertrophy of (infrapatellar) fat pad; M25.762 Osteophyte, left knee; I10 Essential (primary) hypertension
CPT/HCPCS: 01400; 64447; 64450; 76942; 93005; 93010; 97161; C1776; J0131; J0690; J1885; J2001; J2250; J2704; J2795; J3010; J7121

== ENCOUNTER 2023-01-26 06:30 | Day surgery (SDC) | payer MEDICARE, OTHER ==
[2023-01-25 13:27] VITALS: BP 155/82
[~2023-01-26] VITALS: Ht 182.9 cm; Wt 97.7 kg
[~2023-01-26 06:30] MED LIST changes: +DICLOFENAC SODI75 MG PO; +GABAPENTIN300 MG PO; +SENNA LAX8.6 MG PO; +XARELTO10 MG PO
[2023-01-26 06:42] VITALS: BP 149/87
[2023-01-26] MEDS ORDERED: HYDROCODON-ACE1 EA10 PO (08:14)
[2023-01-26 08:39] VITALS: BP 171/93
--- NOTE | 2023-01-26 09:00 | OR ---
[facility] [address] [place], [place] [address] Signed DATE OF OPERATION: 01/26/2023 SURGEON: Lenard Ashford MD PREOPERATIVE DIAGNOSIS: Carpal tunnel syndrome, left. POSTOPERATIVE DIAGNOSIS: Carpal tunnel syndrome, left. PROCEDURE PERFORMED: Left carpal tunnel release. PYROMETER MECHANIC: None. ANESTHESIA: Oliver block. TOURNIQUET TIME: 20 minutes. BRIEF HISTORY: Keo is a 72-year-old gentleman with pain and numbness in his hand. Nerve conduction studies are consistent with significant carpal tunnel. Risks and benefits of operative treatment were discussed with him and he elected to proceed. DESCRIPTION OF PROCEDURE: Once consent was obtained, he was taken to the operating room and left on the day surgery bed. A hand table was brought in. After adequate [place] block was established, the arm was prepped and draped in a standard sterile fashion. The carpal tunnel was approached through a 1.5 cm incision in the distal wrist crease carried through the skin and subcutaneous tissue. Visualization of the transverse carpal ligament was undertaken under loupe magnification. It was then dissected free of overlying soft tissue proximally and distally. It was then released proximally a cm and distally to the distal extent. This was palpated using the [place] elevator and found to be completely released. There were some scar bands in the carpal tunnel that were released as well. The wound was copiously irrigated with normal saline, closed with 3-0 Monocryl and Steri-Strips as well as LiquiBand. He was awakened and taken to the recovery room in satisfactory Electronically Signed By: LENARD ASHFORD MD 01/26/23 0900 PATIENT NAME: KEO KHAN OPERATIVE REPORT DATE OF : 52 REPORT #: [id number] PHYSICIAN: LENARD ASHFORD MD PCP: MARCOS CUTLER MD REPORT IS CONFIDENTIAL AND NOT TO BE RELEASED WITHOUT AUTHORIZATION [facility] [address] [place], [place] [address] Signed condition. All sponge, needle, and instrument counts were correct. Lenard Ashford MD BA/ALFONSOL /[id number] Copies: ~ Electronically Signed By: LENARD ASHFORD MD 01/26/23 0900 PATIENT NAME: KEO KHAN OPERATIVE REPORT DATE OF : 52 REPORT #: [id number] PHYSICIAN: LENARD ASHFORD MD PCP: MARCOS CUTLER MD REPORT IS CONFIDENTIAL AND NOT TO BE RELEASED WITHOUT AUTHORIZATION
== END 2023-01-26 08:55 | disposition home or self-care (01) ==
LOC: DS 06:30
PROVIDERS: ATTEND Specialist
PROC: 01N50ZZ Release Median Nerve, Open Approach (ICD-10-PCS; principal; 2023-01-26 08:15)
DX: G56.03 Carpal tunnel syndrome, bilateral upper limbs (principal); K21.9 Gastro-esophageal reflux disease without esophagitis; I10 Essential (primary) hypertension; E78.5 Hyperlipidemia, unspecified; Z79.899 Other long term (current) drug therapy
CPT/HCPCS: 01810; J0690; J1100; J1885; J2405; J2704; J2765; J3010; J7121